=== PATIENT | male | born 1985 | race American Indian/Alaskan Native ===

== ENCOUNTER 2018-02-13 07:31 | Emergency (ER) | payer SELFPAY ==
[2018-02-13 08:27] VITALS: BP 127/89
[2018-02-13] MEDS ORDERED: NACL 0.9% 1000 ML 1,000 ML IV ONE (08:32)
[2018-02-13 08:48] LABS: Basophils # (Auto) 0.1 K/mm3 (0.0-0.1); Basophils % (Auto) 1.4 % (0.0-1.8); Eosinophils # (Auto) 0.2 K/mm3 (0.0-0.4); Eosinophils % (Auto) 2.3 % (0.0-4.3); Hematocrit 49.8 % (35.5-45.6); Hemoglobin 16.9 gm/dl (11.8-15.2); Lymphocytes # (Auto) 1.6 K/mm3 (1.2-5.4); Lymphocytes % (Auto) 20.5 % (13.4-35.0); Mean Corpuscular HGB Conc 34 % (32-34); Mean Corpuscular Hemoglobin 31 pg (28-32); Mean Corpuscular Volume 92 fl (84-94); Monocytes # (Auto) 0.7 K/mm3 (0.0-0.8); Monocytes % (Auto) 8.2 % (0.0-7.3); Platelet Count 293 K/mm3 (140-440); Red Blood Count 5.42 M/mm3 (3.65-5.03); Red Cell Distribution Width 14.4 % (13.2-15.2)
[2018-02-13 09:06] LABS: Bilirubin,Urine NEG (Negative); Blood,Urine NEG (Negative); Color,Urine Yellow (Yellow); Mucus,Urine FEW /HPF; Protein,Urine <15 mg/dL mg/dL (Negative); Urobilinogen,Urine < 2.0 mg/dL (<2.0)
[2018-02-13 09:09] LABS: Alanine Aminotransferase 20 units/L (7-56); Albumin 4.9 g/dL (3.9-5); BUN/Creatinine Ratio 15; Blood Urea Nitrogen 16 mg/dL (9-20); Calcium 9.9 mg/dL (8.4-10.2); Hemolysis Index 19
[2018-02-13] MEDS ORDERED: XYLOCAINE 1% MPF 5 mL INFILTRATI ONE (09:55)
[2018-02-13] MEDS ORDERED: ROCEPHIN IM ONE (09:55)
[2018-02-13] MEDS ORDERED: ZITHROMAX PO ONE (09:55)
--- NOTE | 2018-02-13 10:01 | Emergency Department Report ---
ED Abdominal Pain HPI - General Chief Complaint: Chest Pain Stated Complaint: CHEST/ AVD PAIN Time Seen by Provider: 02/13/18 09:41 Source: patient Mode of arrival: Ambulatory Limitations: No Limitations - History of Present Illness Initial Comments: Patient is a 32-year-old [place] male who is complaining of epigastric as well as suprapubic discomfort for the past 24 hours. Patient states he does have a history of heavy alcohol use but it stopped last month and started drinking again. Patient drinks approximately 2 pints of liquor a day. Patient denies any nausea vomiting diarrhea. Patient also states he has some suprapubic discomfort that is a pressure sensation. It is no radiation to the back is no penile discharge. - Related Data Previous Rx's Medication Instructions Recorded Last Taken Type Clotrimazole [Athlete's Foot] 60 gm TP BID #1 cream..g. 12/17/15 Unknown Rx Ibuprofen [Motrin] 600 mg PO Q8H PRN #40 tablet 01/25/16 Unknown Rx Ciprofloxacin HCl [Cipro] 500 mg PO BID #14 tablet 02/13/18 Unknown Rx Famotidine [Pepcid] 40 mg PO QHS #20 tablet 02/13/18 Unknown Rx traMADol [Ultram] 50 mg PO Q6HR PRN #10 tablet 02/13/18 Unknown Rx Allergies Allergy/AdvReac Type Severity Reaction Status Date / Time No Known Allergies Allergy Verified 01/25/16 02:57 ED Review of Systems ROS: Stated complaint: CHEST/ AVD PAIN Other details as noted in HPI Comment: All other systems reviewed and negative ED Past Medical Hx - Past Medical History Previous Medical History?: Yes Hx Seizures: Yes Hx Psychiatric Treatment: Yes (p schizo.- states on no meds) Additional medical history: gastric ulcers - Surgical History Past Surgical History?: No - Social History Smoking Status: Never Smoker - Medications Home Medications: Home Medications Medication Instructions Recorded Confirmed Last Taken Type Clotrimazole [Athlete's Foot] 60 gm TP BID #1 cream..g. 12/17/15 Unknown Rx Ibuprofen [Motrin] 600 mg PO Q8H PRN #40 tablet 01/25/16 Unknown Rx Ciprofloxacin HCl [Cipro] 500 mg PO BID #14 tablet 02/13/18 Unknown Rx Famotidine [Pepcid] 40 mg PO QHS #20 tablet 02/13/18 Unknown Rx traMADol [Ultram] 50 mg PO Q6HR PRN #10 tablet 02/13/18 Unknown Rx ED Physical Exam - General Limitations: No Limitations General appearance: alert, in no apparent distress - Head Head exam: Present: atraumatic, normocephalic - Eye Eye exam: Present: normal appearance - ENT ENT exam: Present: mucous membranes moist - Neck Neck exam: Present: normal inspection - Respiratory Respiratory exam: Present: normal lung sounds bilaterally. Absent: respiratory distress - Cardiovascular Cardiovascular Exam: Present: regular rate, normal rhythm. Absent: systolic murmur, diastolic murmur, rubs, gallop - GI/Abdominal GI/Abdominal exam: Present: soft, normal bowel sounds - Rectal Rectal exam: Present: deferred - Extremities Exam Extremities exam: Present: normal inspection - Back Exam Back exam: Present: normal inspection - Neurological Exam Neurological exam: Present: alert, oriented X3 - Psychiatric Psychiatric exam: Present: normal affect, normal mood - Skin Skin exam: Present: warm, dry, intact, normal color. Absent: rash ED Course Vital Signs 02/13/18 08:24 Temperature 98 F Pulse Rate 77 Respiratory 18 Rate Blood Pressure 127/89 O2 Sat by Pulse 98 Oximetry ED Medical Decision Making - Lab Data Result diagrams: 02/13/18 08:35 02/13/18 08:32 Labs 02/13/18 02/13/18 02/13/18 08:32 08:34 08:35 WBC 8.0 RBC 5.42 H Hgb 16.9 H Hct 49.8 H MCV 92 MCH 31 MCHC 34 RDW 14.4 Plt Count 293 Lymph % (Auto) 20.5 [place] % (Auto) 8.2 H Eos % (Auto) 2.3 Baso % (Auto) 1.4 Lymph # 1.6 Fleming # 0.7 Eos # 0.2 Baso # 0.1 Seg Neutrophils % 67.6 Seg Neutrophils # 5.4 Sodium 139 Potassium 4.6 Chloride 100.1 Carbon Dioxide 24 Anion Gap 20 BUN 16 Creatinine 1.1 Estimated GFR > 60 BUN/Creatinine Ratio 15 Glucose 81 Calcium 9.9 Total Bilirubin 0.40 AST 29 ALT 20 Alkaline Phosphatase 63 Troponin T Total Protein 8.6 H Albumin 4.9 Albumin/Globulin Ratio 1.3 Urine Color Yellow Urine Turbidity Clear Urine pH 5.0 Ur Specific [place] 1.015 Urine Protein <15 mg/dl Urine Glucose (UA) Neg Urine Ketones Neg Urine Blood Neg Urine Nitrite Neg Urine Bilirubin Neg Urine Urobilinogen < 2.0 Ur Leukocyte Esterase Sm Urine WBC (Auto) 7.0 H Urine RBC (Auto) 2.0 U Epithel Cells (Auto) 1.0 Urine Mucus Few 02/13/18 08:35 WBC RBC Hgb Hct MCV MCH MCHC RDW Plt Count Lymph % (Auto) Fleming % (Auto) Eos % (Auto) Baso % (Auto) Lymph # Fleming # Eos # Baso # Seg Neutrophils % Seg Neutrophils # Sodium Potassium Chloride Carbon Dioxide Anion Gap BUN Creatinine Estimated GFR BUN/Creatinine Ratio Glucose Calcium Total Bilirubin AST ALT Alkaline Phosphatase Troponin T < 0.010 Total Protein Albumin Albumin/Globulin Ratio Urine Color Urine Turbidity Urine pH Ur Specific [place] Urine Protein Urine Glucose (UA) Urine Ketones Urine Blood Urine Nitrite Urine Bilirubin Urine Urobilinogen Ur Leukocyte Esterase Urine WBC (Auto) Urine RBC (Auto) U Epithel Cells (Auto) Urine Mucus - EKG Data -: EKG Interpreted by N[place] - EKG Data 02/13/18 09:59 EKG shows a sinus rhythm rate of 63 and the last was normal intervals no ST segment elevations or depressions. Interpretation 745 - Medical Decision Making Patient had very minimal tenderness on exam. Patient's main complaints when I asked where the maximal area of pain is is in the suprapubic region. Patient does have some small amounts of WBCs in his urine. Patient be empirically treated for STDs will also start on Cipro for urinary tract infection. Patient also has some epigastric discomfort. This most likely is from alcoholic gastritis. Patient's been counseled about the amount of alcohol that he drinks. Patient be discharged home at this time. Critical care attestation.: If time is entered above; I have spent that time in minutes in the direct care of this critically ill patient, excluding procedure time. ED Disposition Clinical Impression: Alcoholic gastritis Qualifiers: Chronicity: acute Gastritis bleeding: presence of bleeding unspecified Qualified Code(s): K29.20 - Alcoholic gastritis without bleeding UTI (urinary tract infection) Qualifiers: Urinary tract infection type: site unspecified Hematuria presence: without hematuria Qualified Code(s): N39.0 - Urinary tract infection, site not specified Disposition: TO HOME OR SELFCARE Is pt being admited?: No Does the pt Need Aspirin: No Condition: Stable Instructions: Gastritis (ED), Abuse of Alcohol (ED), Urinary Tract Infection in Men (ED) Referrals: [facility] [Outside] - 3-5 Days
== END 2018-02-13 10:49 | disposition home or self-care (01) ==
LOC: ED 07:31
DX: K29.20 Alcoholic gastritis without bleeding (principal); N39.0 Urinary tract infection, site not specified
CPT/HCPCS: 36415; 80053; 81001; 84484; 85025; 93005; 93010; 96372; 99284; J0696